=== PATIENT | male | born 1990 | race Two or more races ===

== ENCOUNTER 2018-01-07 17:18 | Emergency (ER) | payer OTHER ==
[2018-01-07] MEDS ORDERED: NORMAL SALINE 1000 ML 1,000 ML IV PRN (18:17)
[2018-01-07] MEDS ORDERED: KETOROLAC TROMETHAMINE INJ/PF 30 MG/1 ML SDV IV ONE (18:18)
[2018-01-07] MEDS ORDERED: HYDROMORPHONE HCL INJ/PF 2 MG/ML AMPULE IV ONE ×2 (18:18→20:12)
[2018-01-07] MEDS ORDERED: ONDANSETRON HCL INJ/PF 4 MG/2 ML SDV IV ONE (18:18)
--- NOTE | 2018-01-07 18:21 | ER Document Report ---
ED Medical Screen (RME) - General Chief Complaint: Possible Kidney Stone Stated Complaint: FLANK PAIN Time Seen by Provider: 01/07/18 18:15 TRAVEL OUTSIDE OF THE [place] IN LAST 30 DAYS: No - HPI Notes: 01/07/18 18:20 Told at urgent care had 8 mm kidney stone history of stones in the past complaining of flank pain. - Related Data Allergies/Adverse Reactions: tramadol Allergy (Verified 01/07/18 18:14) Past Medical History - Social History Chew tobacco use (# tins/day): No Frequency of alcohol use: Occasional Drug Abuse: None Renal/ Medical History: Reports: Hx Kidney Stones. Denies: Hx Peritoneal Dialysis Past Surgical History: Reports: Hx Orthopedic Surgery - Lt knee Review of Systems - Review of Systems Genitourinary: Flank pain Physical Exam - Vital signs Vitals: Temp Pulse Resp BP Pulse Ox 98.8 F 80 18 120/67 97 01/07/18 17:25 01/07/18 17:25 01/07/18 17:25 01/07/18 17:25 01/07/18 17:25 - Respiratory Respiratory status: No respiratory distress Chest status: Nontender Breath sounds: Normal Chest palpation: Normal Course - Vital Signs Vital signs: Temp Pulse Resp BP Pulse Ox 98.8 F 80 18 120/67 97 01/07/18 17:25 01/07/18 17:25 01/07/18 17:25 01/07/18 17:25 01/07/18 17:25
[2018-01-07 19:43] LABS: ABSOLUTE EOSINOPHILS # (AUTO) 0.1 10^3/uL (0.0-0.6); ABSOLUTE LYMPHOCYTES (AUTO) 3.1 10^3/uL (0.5-4.7); ABSOLUTE MONOCYTES (AUTO) 0.8 10^3/uL (0.1-1.4); ABSOLUTE NEUT (AUTO) 6.6 10^3/uL (1.7-8.2); BASOPHILS % (AUTO) 0.4 % (0-2); EOSINOPHILS % (AUTO) 1.3 % (0-6); HEMATOCRIT 44.8 % (37.9-51.0); HEMOGLOBIN 15.6 g/dL (13.5-17.0); LYMPHOCYTES % (AUTO) 28.8 % (13-45); MEAN CORPUSCULAR HEMOGLOBIN 30.6 pg (27.0-33.4); MEAN CORPUSCULAR HGB CONC 34.9 g/dL (32.0-36.0); MEAN CORPUSCULAR VOLUME 88 fl (80-97); MONOCYTES % (AUTO) 7.1 % (3-13); PLATELET COUNT 251 10^3/uL (150-450); RED BLOOD COUNT 5.11 10^6/uL (4.35-5.55); RED CELL DISTRIBUTION WIDTH 13.6 % (11.5-14.0); SEGMENTED NEUTROPHILS % (AUTO) 62.4 % (42-78); TOTAL CELLS COUNTED % (AUTO) 100 %; WHITE BLOOD COUNT 10.6 10^3/uL (4.0-10.5)
--- NOTE | 2018-01-07 19:51 | ER Document Report ---
ED General - General Chief Complaint: Possible Kidney Stone Stated Complaint: FLANK PAIN Time Seen by Provider: 01/07/18 18:15 TRAVEL OUTSIDE OF THE [place] IN LAST 30 DAYS: No - HPI Notes: Patient is a 27-year-old male with a history of a kidney stone as a child who presents to the ED complaining of bilateral flank pain that radiates into his groin 3-4 days it worsened today. Patient was seen at urgent care on Saturday and was told that he had kidney stones, they called him back yesterday and told him that he had an 8 mm stone that was noted. Patient states that when he was 10 years old he had a kidney stone and had lithotripsy performed. Patient states that he is still able to eat and drink, but does have a decreased p.o. intake. He has associated nausea without any vomiting. Patient states that on occasion he notices dark urine. Denies any other significant past medical history. Denies any IV drug use. Denies any headache, fever, neck pain, URI, sore throat, chest pain, palpitations, syncope, cough, shortness of breath, wheeze, dyspnea, vomiting/diarrhea, loss of control of bowel or bladder, numbness/tingling, saddle anesthesia, muscle paralysis/weakness, or rash. - Related Data Allergies/Adverse Reactions: tramadol Allergy (Verified 01/07/18 18:14) Past Medical History - Social History Smoking Status: Current Every Day Smoker Chew tobacco use (# tins/day): No Frequency of alcohol use: Occasional Drug Abuse: None Family History: Reviewed & Not Pertinent Patient has suicidal ideation: No Patient has homicidal ideation: No Renal/ Medical History: Reports: Hx Kidney Stones. Denies: Hx Peritoneal Dialysis Past Surgical History: Reports: Hx Orthopedic Surgery - Lt knee Review of Systems - Review of Systems -: Yes All other systems reviewed and negative Physical Exam - Vital signs Vitals: Temp Pulse Resp BP Pulse Ox 98.8 F 80 18 120/67 97 01/07/18 17:25 01/07/18 17:25 01/07/18 17:25 01/07/18 17:25 01/07/18 17:25 - Notes Notes: PHYSICAL EXAMINATION: GENERAL: Well-appearing, well-nourished and in no acute distress. HEAD: Atraumatic, normocephalic. EYES: Pupils equal round and reactive to light, extraocular movements intact, sclera anicteric, conjunctiva are normal. ENT: Nares patent and without discharge. oropharynx clear without exudates. No tonsilar hypertrophy or erythema. Moist mucous membranes. NECK: Normal range of motion, supple without lymphadenopathy LUNGS: Breath sounds clear to auscultation bilaterally and equal. No wheezes rales or rhonchi. HEART: Regular rate and rhythm without murmurs, rubs, gallops. ABDOMEN: Soft, nondistended abdomen. No guarding, no rebound. No masses appreciated. Normal bowel sounds present. No CVA tenderness bilaterally. + mild tenderness to the lower abdomen b/l. Musculoskeletal: FROM to passive/active. Strength 5+/5. Extremities: No cyanosis, clubbing, or edema b/l. Peripheral pulses 2+. Capillary refill less than 3 seconds. NEUROLOGICAL: Normal speech, normal gait. PSYCH: Normal mood, normal affect. SKIN: Warm, Dry, normal turgor, no rashes or lesions noted. Course - Re-evaluation Re-evalutation: 01/07/18 20:08 Patient is an afebrile, well-hydrated, 27-year-old male who presents to the ED with a left intra-renal 3 x 7 mm calculus that is nonobstructing. Vitals are acceptable. PE is otherwise unremarkable. CBC showed a very mildly elevated white blood cell count without any left shift. CMP was unremarkable. Urinalysis showed moderate hematuria, but otherwise unremarkable. Patient has no significant tachycardia, tachypnea, or hypoxia. He is tolerating p.o. without difficulties. He was given fluids and pain medications as well as nausea medication. See CT scan result. No other labs or imaging warranted at this time based on H&P. Low suspicion/risk for acute appendicitis, bowel obstruction, acute cholecystitis, perforated diverticulitis, incarcerated hernia , pancreatitis, perforated ulcer, peritonitis, sepsis, testicular torsion, or other systemic emergent condition at this time. Patient is aware that his condition can change from initial presentation and he needs to monitor symptoms closely and seek medical attention if any acute changes. I will send him home with Flomax, Zofran, and a [place] dispense pack. Conservative measures otherwise for symptoms. Recheck with PCM in 2-3 days. Consider consult with a Urologist, call tomorrow to schedule. Return to the ED with any worsening/ concerning symptoms otherwise as reviewed in discharge. Patient is in agreement. - Vital Signs Vital signs: Temp Pulse Resp BP Pulse Ox 98.8 F 80 18 120/67 97 01/07/18 17:25 01/07/18 17:25 01/07/18 17:25 01/07/18 17:25 01/07/18 17:25 - Laboratory Result Diagrams: 01/07/18 18:48 01/07/18 18:48 Laboratory results interpreted by me: 01/07/18 01/07/18 01/07/18 18:48 18:48 18:48 WBC 10.6 H Chloride 108 H Glucose 61 L Creatine Kinase 232 H Urine Blood MODERATE H Urine Urobilinogen 4.0 H Ur Leukocyte Esterase TRACE H Urine Ascorbic Acid 40 H Discharge - Discharge Clinical Impression: Kidney stone on left side Condition: Stable Disposition: HOME, SELF-CARE Instructions: Kidney Stone ([facility]) Additional Instructions: Maintain adequate fluid and food intake [place] diet ([employer] Bananas, rice, apples, toast, etc Zofran as needed tylenol if needed Monitor for any worsening symptoms Make sure you are staying hydrated enough to urinate and have normal BM's Recheck with your PCM in 2-3 days Call Urology tomorrow to schedule an appointment for further evaluation and management. Return to the ED with any worsening symptoms and/or development of fever, headache, chest pain, palpitations, syncope, shortness of breath, trouble breathing, abdominal pain, n/v/d, blood in stool/urine, weakness, or other worsening symptoms that are concerning to you. Prescriptions: Ondansetron [Zofran Odt 4 mg Tablet] 1 - 2 tab PO Q4H PRN #15 tab.rapdis PRN Reason: For Nausea/Vomiting Tamsulosin HCl [Flomax] 0.4 mg PO DAILY #10 cap.er.24h Referrals: AYLA RUIZ MD [KODI MCCONNELL] - Follow up in 3-5 days
--- NOTE | 2018-01-07 19:52 | RADIOLOGY REPORT (SQ) ---
EXAM DESCRIPTION: CT LTD RENAL STONE PROTOCOL ON COMPLETED DATE/TIME: 01/07/2018 7:37 pm REASON FOR STUDY: flank pain COMPARISON: None. TECHNIQUE: CT scan of the abdomen and pelvis performed without intravenous or oral contrast. Images reviewed with lung, soft tissue, and bone windows. Reconstructed coronal and sagittal MPR images revi ewed. All images stored on PACS. All CT scanners at this facility use dose modulation, iterative reconstruction, and/or weight based d osing when appropriate to reduce radiation dose to as low as reasonably achievable (ALARA). [facility]: Dose Right [facility]: CareDose [facility]: Dose Right [facility]: Teradose 4D [facility]: Smart [employer] Wireless RADIATION DOSE: CT Rad equipment meets quality standard of care and radiation dose reduction techniq ues were employed. CTDIvol: 13.5 mGy. DLP: 768 mGy-cm.mGy. LIMITATIONS: None. FINDINGS: LOWER CHEST: No significant findings. No nodules or infiltrates. NON-CONTRASTED LIVER, SPLEEN, ADRENALS: A couple small low-density lesions are present in the liver s uggestive of cysts. The spleen and adrenal glands are normal. PANCREAS: No masses. No peripancreatic inflammatory changes. GALLBLADDER: No identified stones by CT criteria. No inflammatory changes to suggest cholecystitis. RIGHT KIDNEY AND URETER: No suspicious masses. Assessment limited by lack of IV contrast. No signif icant calcifications. No hydronephrosis or hydroureter. LEFT KIDNEY AND URETER: No suspicious masses. Assessment limited by lack of IV contrast. There is a 3 x 7 mm intrarenal calculus on image 28. No hydronephrosis or hydroureter. AORTA AND RETROPERITONEUM: No aneurysm. No retroperitoneal masses or adenopathy. BOWEL AND PERITONEAL CAVITY: Descending and sigmoid diverticulosis with no acute inflammatory changes . No obvious bowel masses are seen. APPENDIX: Normal. PELVIS, BLADDER, AND ABDOMINAL WALL:No abnormal masses. No free fluid. Bladder normal. BONES: No significant findings. OTHER: No other significant finding. IMPRESSION: 1. Nonobstructing left intrarenal calculus. There is no ureteral stone or obstruction. 2. Diverticulosis coli. COMMENT: Quality ID # [id number]: Final reports with documentation of one or more dose reduction techniques (e.g., Automated exposure control, adjustment of the mA and/or kV according to patient size, use of iterative reconstruction technique) TECHNICAL DOCUMENTATION: JOB ID: [id number] [employer]- All Rights Reserved Reading location - IP/workstation name: [email or web address]
[2018-01-07 20:02] LABS: ANION GAP 11 (5-19); BLOOD UREA NITROGEN 10 mg/dL (7-20); CALCIUM 9.7 mg/dL (8.4-10.2); CARBON DIOXIDE 25 mmol/L (22-30); CHLORIDE 108 mmol/L (98-107); CREATINE KINASE 232 U/L (55-170); GLUCOSE 61 mg/dL (75-110); POTASSIUM 4.4 mmol/L (3.6-5.0); SODIUM 143.8 mmol/L (137-145)
[2018-01-07 20:04] LABS: APPEARANCE,URINE SLIGHTLY-CLOUDY; BILIRUBIN,URINE NEGATIVE (NEGATIVE); COLOR,URINE YELLOW; GLUCOSE, URINE NEGATIVE (NEGATIVE); KETONES,URINE NEGATIVE (NEGATIVE); LEUKOCYTE ESTERASE,URINE TRACE (NEGATIVE); NITRITE,URINE NEGATIVE (NEGATIVE); PROTEIN,URINE NEGATIVE (NEGATIVE); URINE SPECIFIC GRAVITY 1.016
[2018-01-07] MEDS ORDERED: HYDROCODONE/ACETAMINOPHEN 5-325 MG (6 TAB/ER DISP) PO PRN (20:09)
[2018-01-07 20:19] VITALS: BP 113/64
== END 2018-01-07 20:27 | disposition home or self-care (01) ==
LOC: ER 17:18
DX: N20.0 Calculus of kidney (principal); R10.9 Unspecified abdominal pain; F17.200 Nicotine dependence, unspecified, uncomplicated; Z87.442 Personal history of urinary calculi
CPT/HCPCS: 96376; 99284; 96374; 96375; 36415; 82550; 85025; 80048; 81001; 76380; J1885; J1170; J2405; J7030

== ENCOUNTER 2018-10-15 16:12 | Emergency (ER) | payer OTHER ==
[2018-10-15] MEDS ORDERED: ASPIRIN 81 MG TABLET, CHEWABLE PO ONE (17:52)
--- NOTE | 2018-10-15 17:54 | ER Document Report ---
ED Medical Screen (RME) - General Chief Complaint: Chest Pain Stated Complaint: CHEST PAIN Time Seen by Provider: 10/15/18 17:49 Notes: Chief complaint: Chest pain History of complain:( obtained from----patient) 27 years old male presents today with chest pain. Start had a chest pain yesterday while he was working which was a very sharp over the precordial region radiated down the left arm. Lasted for about a hour. Again today he went back to work and started having the similar pain therefore came back to the ED. Today we had pain with left arm numbness and tingling sensation palpitation and nausea no vomiting. Denied any diaphoresis. Former smoker. Both parents have coronary artery disease. PHYSICAL EXAMINATION: GENERAL: Well-appearing, well-nourished and in no acute distress. HEAD: Atraumatic, normocephalic. EYES: Pupils equal round and reactive to light, extraocular movements intact, conjunctiva are normal. ENT: Nares patent, oropharynx clear without exudates. Moist mucous membranes. NECK: Normal range of motion, supple without lymphadenopathy LUNGS: Breath sounds clear to auscultation bilaterally and equal. No wheezes rales or rhonchi. HEART: Regular rate and rhythm without murmurs Reproducible chest wall tenderness noted ABDOMEN: Soft, epigastric tenderness noted, nondistended abdomen. No guarding, no rebound. No masses appreciated. TRAVEL OUTSIDE OF THE [place] IN LAST 30 DAYS: No - Related Data Allergies/Adverse Reactions: tramadol Allergy (Verified 10/15/18 16:14) Past Medical History Renal/ Medical History: Reports: Hx Kidney Stones. Denies: Hx Peritoneal Dialysis Past Surgical History: Reports: Hx Orthopedic Surgery - Lt knee Physical Exam - Vital signs Vitals: Temp Pulse Resp BP Pulse Ox 98.0 F 82 14 114/71 100 10/15/18 16:27 10/15/18 16:27 10/15/18 16:27 10/15/18 16:27 10/15/18 16:27 Course - Vital Signs Vital signs: Temp Pulse Resp BP Pulse Ox 98.0 F 82 14 114/71 100 10/15/18 16:27 10/15/18 16:27 10/15/18 16:27 10/15/18 16:27 10/15/18 16:27
--- NOTE | 2018-10-15 18:17 | RADIOLOGY REPORT (SQ) ---
EXAM DESCRIPTION: CHEST SINGLE VIEW COMPLETED DATE/TIME: 10/15/2018 6:08 pm REASON FOR STUDY: Chest pain COMPARISON: None. EXAM PARAMETERS: NUMBER OF VIEWS: One view. TECHNIQUE: Single frontal radiographic view of the chest acquired. RADIATION DOSE: NA LIMITATIONS: None. FINDINGS: LUNGS AND PLEURA: No opacities, masses or pneumothorax. No pleural effusion. MEDIASTINUM AND HILAR STRUCTURES: No masses. Contour normal. HEART AND VASCULAR STRUCTURES: Heart normal in size. Normal vasculature. BONES: No acute findings. HARDWARE: None in the chest. OTHER: No other significant finding. IMPRESSION: NO ACUTE RADIOGRAPHIC FINDING IN THE CHEST. TECHNICAL DOCUMENTATION: JOB ID: [id number] [employer]- All Rights Reserved Reading location - IP/workstation name: [email or web address]
[2018-10-15 18:28] LABS: ABSOLUTE BASOPHILS # (AUTO) 0.2 10^3/uL (0.0-0.2); ABSOLUTE EOSINOPHILS # (AUTO) 0.1 10^3/uL (0.0-0.6); ABSOLUTE LYMPHOCYTES (AUTO) 2.9 10^3/uL (0.5-4.7); ABSOLUTE MONOCYTES (AUTO) 0.8 10^3/uL (0.1-1.4); ABSOLUTE NEUT (AUTO) 9.2 10^3/uL (1.7-8.2); BASOPHILS % (AUTO) 1.2 % (0-2); EOSINOPHILS % (AUTO) 0.9 % (0-6); HEMOGLOBIN 15.2 g/dL (13.5-17.0); LYMPHOCYTES % (AUTO) 22.1 % (13-45); MEAN CORPUSCULAR HEMOGLOBIN 30.2 pg (27.0-33.4); MEAN CORPUSCULAR HGB CONC 34.4 g/dL (32.0-36.0); MEAN CORPUSCULAR VOLUME 88 fl (80-97); MONOCYTES % (AUTO) 5.9 % (3-13); PLATELET COUNT 255 10^3/uL (150-450); RED BLOOD COUNT 5.02 10^6/uL (4.35-5.55); RED CELL DISTRIBUTION WIDTH 13.6 % (11.5-14.0); SEGMENTED NEUTROPHILS % (AUTO) 69.9 % (42-78); TOTAL CELLS COUNTED % (AUTO) 100 %; WHITE BLOOD COUNT 13.2 10^3/uL (4.0-10.5)
[2018-10-15 18:48] LABS: ALANINE AMINOTRANSFERASE 34 U/L (21-72); ALBUMIN 4.8 g/dL (3.5-5.0); ALKALINE PHOSPHATASE 66 U/L (38-126); ANION GAP 10 (5-19); ASPARTATE AMINO TRANSFERASE 32 U/L (17-59); BILIRUBIN,DIRECT 0.3 mg/dL (0.0-0.4); BILIRUBIN,TOTAL 0.5 mg/dL (0.2-1.3); BLOOD UREA NITROGEN 15 mg/dL (7-20); CALCIUM 9.9 mg/dL (8.4-10.2); CARBON DIOXIDE 26 mmol/L (22-30); CHLORIDE 108 mmol/L (98-107); CREATINE KINASE 424 U/L (55-170); GLUCOSE 76 mg/dL (75-110); POTASSIUM 4.3 mmol/L (3.6-5.0); SODIUM 144.4 mmol/L (137-145); TOTAL PROTEIN 7.6 g/dL (6.3-8.2)
[2018-10-15 18:58] LABS: CREATINE KINASE MB 1.78 ng/mL (<4.55)
[2018-10-15 19:03] LABS: TROPONIN I < 0.012 ng/mL
--- NOTE | 2018-10-15 21:57 | ER Document Report ---
Entered by PAULETTE APPLE SCRIBE 10/15/18 8930 Acting as scribe for:THEERSE MCALLISTER DO ED General - General Chief Complaint: Chest Pain Stated Complaint: CHEST PAIN Time Seen by Provider: 10/15/18 17:49 Mode of Arrival: Ambulatory Information source: Patient Notes: Patient is a 27 year old male presenting to the emergency department complaining of chest pain onset yesterday. Pateint states he had an episode of chest pain while at work yesterday afternoon. He states the pain was located on the left side that radiated into his left arm that lasted approximately 1 hour. He states today he had identical pain while at work after he bent over and stood back up. He states this lasted for approximately 45 minutes and was accompanied by nausea. Patient mentions visiting urgent care yesterday due to epigastric pain and states he vomited immediately after a provider pressed on his upper abdomen. He reports taking a Zantac when he got home that evening which resolved his pain however it returned again today, of note he did not take Zantac today. TRAVEL OUTSIDE OF THE [place] IN LAST 30 DAYS: No - Related Data Allergies/Adverse Reactions: tramadol Allergy (Verified 10/15/18 16:14) Past Medical History - General Information source: Patient - Social History Smoking Status: Former Smoker Cigarette use (# per day): No Chew tobacco use (# tins/day): No Smoking Education Provided: No Frequency of alcohol use: None Drug Abuse: Marijuana Family History: Reviewed & Not Pertinent Patient has suicidal ideation: No Patient has homicidal ideation: No Renal/ Medical History: Reports: Hx Kidney Stones Past Surgical History: Reports: Hx Orthopedic Surgery - Lt knee Review of Systems - Review of Systems Constitutional: No symptoms reported EENT: No symptoms reported Cardiovascular: See HPI, Chest pain Respiratory: No symptoms reported Gastrointestinal: See HPI, Abdominal pain, Nausea, Vomiting Genitourinary: No symptoms reported Male Genitourinary: No symptoms reported Musculoskeletal: No symptoms reported Skin: No symptoms reported Hematologic/Lymphatic: No symptoms reported Neurological/Psychological: No symptoms reported -: Yes All other systems reviewed and negative Physical Exam - Vital signs Vitals: Temp Pulse Resp BP Pulse Ox 98.0 F 82 14 114/71 100 10/15/18 16:27 10/15/18 16:27 10/15/18 16:27 10/15/18 16:27 10/15/18 16:27 - Notes Notes: GENERAL: Alert, interacts well. No acute distress. HEAD: Normocephalic, atraumatic. EYES: Pupils equal, round, and reactive to light. Extraocular movements intact. ENT: Oral mucosa moist, tongue midline. NECK: Full range of motion. Supple. Trachea midline. LUNGS: Clear to auscultation bilaterally, no wheezes, rales, or rhonchi. No respiratory distress. HEART: Regular rate and rhythm. No murmurs, gallops, or rubs. ABDOMEN: Soft, epigastric tenderness to palpation. Non-distended. Bowel sounds present in all 4 quadrants. EXTREMITIES: Moves all 4 extremities spontaneously. NEUROLOGICAL: Alert and oriented x3. Normal speech. PSYCH: Normal affect, normal mood. SKIN: Warm, dry, normal turgor. No rashes or lesions noted. Course - Re-evaluation Re-evalutation: 10/15/18 21:38 Patient states he would like to go home and after having a second troponin drawn without awaiting results, further stating his chest pain is gone. Girlfriend and patient left their phone numbers to receive results. Tabitha: [phone]. Parag: [phone]. 10/15/18 21:50 CBC shows mild leukocytosis of 13.2, CMP grossly unremarkable, cardiac enzyme initially negative, chest x-ray unremarkable. EKG is nonischemic. Patient refuses to stay for a second set of enzymes to be drawn and run. Agrees to have them drawn and we will call him with the results. At present I feel his pain is more likely coming from acid reflux or gastric ulcer however given his family history of think it is prudent to check a second set of cardiac enzymes. Patient has had a second troponin drawn and it is sent to the lab. Patient will be discharged home and I will call him with the results. Patient is agreeable to taking Zantac 75 mg twice a day for the next 2 weeks and following up with his primary care physician as an outpatient. 10/16/18 03:25 Second troponin is negative, left a voicemail for Parag at the number above. - Vital Signs Vital signs: Temp Pulse Resp BP Pulse Ox 98.0 F 82 20 120/79 100 10/15/18 16:27 10/15/18 16:27 10/15/18 22:00 10/15/18 21:01 10/15/18 21:01 - Laboratory Result Diagrams: 10/15/18 18:15 10/15/18 18:15 Laboratory results interpreted by me: 10/15/18 10/15/18 18:15 18:15 WBC 13.2 H Absolute Neutrophils 9.2 H Chloride 108 H Creatine Kinase 424 H - EKG Interpretation by Me Additional EKG results interpreted by me: 10/15/18 21:51 EKG shows sinus rhythm rate of 72, normal axis, normal intervals, no ST segment elevations or depressions, isolated T wave inversions in lead III per my interpretation. Discharge - Discharge Clinical Impression: Left-sided chest pain Condition: Stable Disposition: HOME, SELF-CARE Additional Instructions: Please take Zantac or the generic equivalent 75 mg twice a day for the next 2 weeks. I will call you with the results of your second troponin, this is the heart attack enzyme we talked about. Please return if your pain worsens or you develop any new or concerning symptoms. Please answer your phone when I call. Forms: Return to Work Scribe Attestation: 10/16/18 04:18 I personally performed the services described in the documentation, reviewed and edited the documentation which was dictated to the scribe in my presence, and it accurately records my words and actions. I personally performed the services described in the documentation, reviewed and edited the documentation which was dictated to the scribe in my presence, and it accurately records my words and actions.
[2018-10-15 22:24] VITALS: BP 120/79
--- NOTE | 2018-10-16 00:24 | EKG REPORT ---
SEVERITY:- NORMAL ECG - SINUS RHYTHM : Confirmed by: Gia Wilson MD 16-Oct-2018 00:24:26
== END 2018-10-15 22:24 | disposition home or self-care (01) ==
LOC: ER 16:12
DX: R07.9 Chest pain, unspecified (principal); M79.602 Pain in left arm; R11.2 Nausea with vomiting, unspecified; R10.9 Unspecified abdominal pain; Z87.891 Personal history of nicotine dependence
CPT/HCPCS: 36415; 71045; 80053; 82550; 82553; 84484; 85025; 93005; 93010; 99285

== ENCOUNTER 2019-03-16 18:16 | Emergency (ER) | payer OTHER ==
[2019-03-16] MEDS ORDERED: AMOXICILLIN TR/POT CLAVULANATE 500-125 MG TAB PO ONE (21:09)
[2019-03-16] MEDS ORDERED: HYDROCODONE/ACETAMINOPHEN 5-325 MG (6 TAB/ER DISP) PO PRN (21:09)
--- NOTE | 2019-03-16 21:36 | ER Document Report ---
ED Animal Bite - General Chief Complaint: Dog Bite Stated Complaint: DOG BITE/BOTH HANDS Time Seen by Provider: 03/16/19 20:39 Primary Care Provider: PAIGE PEÑALOZA DO [ACTIVE STAFF] - Follow up tomorrow (Please call in the morning to schedule a follow-up appointment) Mode of Arrival: Ambulatory Information source: Patient Notes: 28-year-old male presented to ED for complaint of dog bites to both hands. He states that he was driving home from work when he saw [address]. He states he does not know the dog's has never seen the dog's but the dog did not look sick he said he tried to break them up and they bit him on both hands. There are puncture wounds to both hands. Patient states he had a tetanus shot last year from a laceration. Patient is alert oriented respirations regular and unlabored speaking in full sentences walks with even steady gait. Discussed rabies x-ray antibiotics and pain medicine with patient. Patient refused rabies said he did not want rabies if he got sick he will go see somebody or else . He was in front of his 's when he refused the rabies. states she heard him. TRAVEL OUTSIDE OF THE [place] IN LAST 30 DAYS: No - HPI Location of injury: Other - Both hands Severity of injury: Scratched Onset: Just prior to arrival Quality of pain: Sharp, Throbbing Pain Level: 5 Severity: Severe Context of attack: Animals fighting Type of animal: Dog Appearance of animal: Appeared well Animal's immunizations: UTD Animal captured or known: No Animal control notified: No Animal control form completed: Yes - Related Data Allergies/Adverse Reactions: tramadol Allergy (Verified 03/16/19 18:20) Past Medical History - General Information source: Patient - Social History Smoking Status: Former Smoker Cigarette use (# per day): No Frequency of alcohol use: Occasional Drug Abuse: None 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 Lives with: Family Family History: Reviewed & Not Pertinent Patient has suicidal ideation: No Patient has homicidal ideation: No - Past Medical History Cardiac Medical History: Reports: None Pulmonary Medical History: Reports: None EENT Medical History: Reports: None Neurological Medical History: Reports: None Endocrine Medical History: Reports: None Renal/ Medical History: Reports: Hx Kidney Stones Malignancy Medical History: Reports None GI Medical History: Reports: None Musculoskeletal Medical History: Reports Hx Musculoskeletal Deformity Skin Medical History: Reports Hx Cellulitis Psychiatric Medical History: Reports: None Traumatic Medical History: Reports: None Infectious Medical History: Reports: None Past Surgical History: Reports: Hx Kidney (Renal Surgery) - Lithotripsy and stents to left ureter, Hx Orthopedic Surgery - Lt knee sixth finger removed from both hands - Immunizations Hx Diphtheria, Pertussis, Tetanus Vaccination: Yes - 2018 Review of Systems - Review of Systems Constitutional: No symptoms reported EENT: No symptoms reported Cardiovascular: No symptoms reported Respiratory: No symptoms reported Gastrointestinal: No symptoms reported Genitourinary: No symptoms reported Male Genitourinary: No symptoms reported Musculoskeletal: Other - Dog bites to both hands Skin: Other - Dog bites to both hands 2 puncture wounds to the right hand and one puncture wound to the left hand Hematologic/Lymphatic: No symptoms reported Neurological/Psychological: No symptoms reported Physical Exam - Vital signs Vitals: Temp Pulse Resp BP Pulse Ox 98.3 F 93 18 142/77 H 97 03/16/19 18:26 03/16/19 18:26 03/16/19 18:26 03/16/19 18:26 03/16/19 18:26 Interpretation: Normal - General General appearance: Appears well, Alert - HEENT Head: Normocephalic, Atraumatic Eyes: Normal Pupils: PERRL - Respiratory Respiratory status: No respiratory distress Chest status: Nontender Breath sounds: Normal Chest palpation: Normal - Cardiovascular Rhythm: Regular Heart sounds: Normal auscultation Murmur: No - Abdominal Inspection: Normal Distension: No distension Bowel sounds: Normal Tenderness: Nontender Organomegaly: No organomegaly - Back Back: Normal, Nontender - Extremities General upper extremity: Normal color, Normal ROM, Normal temperature General lower extremity: Normal inspection, Nontender, Normal color, Normal ROM, Normal temperature, Normal weight bearing. No: Romel's sign Hand: Tender, Laceration, No evidence of human bite, No evidence of FB, Other - Dog bites to both hands 3 puncture wounds to the right thumb and one to right hand and 3 puncture wound to the left hand. No: Swelling - Neurological Neuro grossly intact: Yes Cognition: Normal Orientation: AAOx4 Shasha Coma Scale Eye Opening: Spontaneous [place] Coma Scale Verbal: Oriented Shasha Coma Scale Motor: Obeys Commands [place] Coma Scale Total: 15 Speech: Normal Motor strength normal: LUE, RUE, LLE, RLE Sensory: Normal - Psychological Associated symptoms: Normal affect, Normal mood - Skin Skin Temperature: Warm Skin Moisture: Dry Skin Color: Normal Skin irregularity: Laceration Location of irregularity: Other - Dog bites to both hands 3 puncture wounds to the right thumb and one to right hand and 3 puncture wound to the left hand Course - Re-evaluation Re-evalutation: 03/16/19 21:57 Discussed the x-ray results with the patient. 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 He states this is not new. Patient has been treated with Augmentin and norco dispense pack, He stated he would rather clean his hands himself and did have the staff cleaning his hands. I have been given him instructions on how he needs to clean it. He will also be treated with Neosporin and dressings before he leaves. He has again used rabies immunizations. He will be discharged home with a prescription for Augmentin and instructions to follow-up with his primary care and a hand surgeon. Patient will be discharged home. Patient was instructed to and he did remove the ring from his right hand. - Vital Signs Vital signs: Temp Pulse Resp BP Pulse Ox 98.3 F 93 18 142/77 H 97 03/16/19 18:26 03/16/19 18:26 03/16/19 18:26 03/16/19 18:26 03/16/19 18:26 - Diagnostic Test Radiology reviewed: Image reviewed, Reports reviewed Discharge - Discharge Clinical Impression: dog bites both hands Condition: Stable Disposition: HOME, SELF-CARE Additional Instructions: Animal Bites Animal bites are often heavily contaminated with bacteria. In spite of thorough cleansing and proper treatment, these wounds frequently become infected. Bite wounds of the hands are especially prone to complications. Bites are dressed, if possible. Large wounds may require suturing after internal cleansing. Because of infection risk, some large wounds must remain unstitched. Your doctor is trained to advise you on the best treatment for your bite. Call the doctor at once if the wound becomes red, swollen, warm, increasingly painful, or if it begins to drain. Danger signs also include red streaks up the involved extremity, swollen glands in the groin or under the arm, or fever and chills. The risk of rabies from domestic animals is very low. Bats, sick animals, and wild animals may expose you to rabies. The physician, or the health department, will inform you if you will need to receive the rabies vaccine. Hand Laceration A laceration on the hand can present special problems. It may be difficult to keep the wound dry. Motion of the fingers can disturb the healing edges. Your work may involve exposure to damaging chemicals or water. Keep the wound clean and dry. If you can't keep the cut dry, undisturbed, and free of chemical exposure, please discuss this with the doctor. If any water or chemical gets onto the dressing, remove it, blot the wound dry, then apply a fresh bandage. Dressings should be changed every day. If you feel the stitches pulling as you move the hand, a splint or other form of protection is needed. If any signs of infection occur (swelling, redness, increasing tenderness, red streaks, tender lumps in the armpit, or fever), see the doctor immediately. NON-SUTURED LACERATION: Your laceration did not require suturing. Some lacerations cannot be sutured because of increased infection risk, while others simply don't need stitches because they are shallow or very short. Your injury should be protected while it heals. Usually complete healing takes 10 to 14 days. Keep the dressing clean and dry, and change it every day. If you notice increasing pain, redness, swelling, drainage, or tender lumps in the armpit or groin above the injury, infection may be present. You should call the doctor at once. SOAP CLEANSING: Gently wash the wound daily using a mild soap (like Ivory, Phisoderm, Neutrogena). Use warm water, rubbing gently until all debris, ooze, and crusting have been washed from the wound. Allow to dry briefly (about 10 minutes) after cleaning. Repeat this cleansing at least three times a day for the first two days and then once or twice a day. ANTIBIOTIC OINTMENT PROTECTION: Your wounds are such that dressing them is not practical or optional. After cleansing, you should apply a thin coating of antibiotic ointment (Bacitracin, not Neosporin) to the wounds at least three times daily. This les sens infection risk, and may decrease the amount of scarring. Use a q-tip or dull butter knife, not your finger, to apply this ointment. Any debris or ooze which builds up in the ointment should be gently rubbed off with a sterile gauze pad. Harder crusting may need to be gently scrubbed off with a clean wash cloth with soap and warm water, perhaps applying a warm, wet wash cloth to the wound for ten minutes first. Development of redness, severe itching, or blistering may mean allergy to the ointment. See the doctor. Augmentin Augmentin is a mixture of amoxicillin and clavulanate. Amoxicillin is a member of the penicillin family. It covers the germs likely to cause ear, bronchial, and urinary infections better than plain penicillin. The addition of clavulanate allows it to cover staph infections of the skin, as well as resistant cases of ear and sinus infections. Your physician has chosen Augmentin for you because of the special nature of your situation. Augmentin is best taken with meals. Nausea after taking the medication is rare, but can occur. Diarrhea can occur, particularly in small children. Vaginal yeast infections, and oral thrush in infants are also common. Contact your physician if these problems occur. Allergy to penicillins is common. If you have had an allergic reaction to any drug of the penicillin family, you should never take any other penicillin. Notify your doctor at once if you develop hives, shortness of breath, swelling, or faintness. ORAL NARCOTIC MEDICATION: You have been given a [place] dispense pack for pain control. This medication is a narcotic. It's best taken with food, as nausea can result if taken on an empty stomach. Don't operate machinery or drive within six hours of taking this medication. Do not combine this medicine with alcohol, or with any medication which can cause sedation (such as cold tablets or sleeping pills) unless you get permission from the physician. Narcotics tend to cause constipation. If possible, drink plenty of fluids and eat a diet high in fiber and fruits. FOLLOW-UP CARE: Please return in __3___ days for an infection check and dressing change. If you have been referred to another physician for follow-up care, call that physicians office for an appointment as you were instructed. If you experience a significant change in your laceration, or if you are concerned there may be an infection (swelling, redness, drainage, increasing tenderness, red streaks, tender lumps in the armpit or groin above the laceration, or fever), return to the Emergency Department immediately re-evaluation. Prescriptions: Amox Tr/Potassium Clavulanate [Augmentin 875-125 mg Tablet] 1 tab PO BID #20 tablet Forms: Elevated Blood Pressure, Return to Work Referrals: PAIGE PEÑALOZA DO [ACTIVE STAFF] - Follow up tomorrow (Please call in the morning to schedule a follow-up appointment)
--- NOTE | 2019-03-16 21:43 | RADIOLOGY REPORT (SQ) ---
EXAM DESCRIPTION: Bilateral hand series. CLINICAL HISTORY: 28 years Male, Dog bites both hands COMPARISON: None. FINDINGS: Three views of each hand. No obvious acute fracture dislocation. Lateral view of the right hand demonstrates minimal irregularity in the anterior aspect of the trapezium bone. This is more likely chronic possible anatomic variation. No suspicious soft tissue abnormalities. No obvious radiopaque foreign bodies. IMPRESSION: No obvious acute findings. Minimal changes in the right trapezium anteriorly of questionable significance. Suggest clinical correlation.
[2019-03-16] MEDS ORDERED: BACITRACIN ZINC OINTMENT 15 GM TP ONE (22:00)
[2019-03-16] MEDS ORDERED: MUPIROCIN CALCIUM 2% CREAM 15 GM ONE (22:57)
[2019-03-16] MEDS ORDERED: BACITRACIN ZINC OINTMENT 15 GM ONE (23:00)
[2019-03-16 23:25] VITALS: BP 138/74
== END 2019-03-16 23:05 | disposition home or self-care (01) ==
LOC: ER 18:16
DX: S61.051A Open bite of right thumb without damage to nail, initial encounter (principal); S61.452A Open bite of left hand, initial encounter; S61.451A Open bite of right hand, initial encounter; W54.0XXA Bitten by dog, initial encounter; Y93.89 Activity, other specified; Z87.891 Personal history of nicotine dependence; Z88.5 Allergy status to narcotic agent
CPT/HCPCS: 99283; 73130; J3490